=== PATIENT | male | born 1970 | race Caucasian/White ===

== ENCOUNTER 2016-10-30 10:30 | Inpatient (IN) | payer MEDICARE, SELFPAY ==
[~2016-10-30 10:30] MED LIST: CARISOPRODOL; HYDROCODON-ACE1 EA16 PO; IBUPROFEN; IBUPROFEN800 M1 PO; [UNRECOGNIZED DRUG - OTHER]
[2016-10-30 11:28] LABS: PROTHROMBIN TIME 11.8 SECONDS (9.0-13.6)
[2016-10-31 06:36] LABS: BASO % 0.1 % (0-2); EOS % 0.2 % (0-7); HCT-HEMATOCRIT 32.5 % (36.0-53.5); HGB-HEMOGLOBIN 10.5 gm/dl (13.5-17.0); IMMATURE GRANULOCYTES ABSOLUTE 0.04 tho/cmm (0-0.03); IMMATURE GRANULOCYTES PERCENT 0.2 % (0-0.3); LYMPH % 13.8 % (20-45); LYMPH ABSOLUTE COUNT 2.4 tho/cmm (0.8-4.5); MCH (MEAN CORPUSCULAR HGB) 27.2 pg (28.0-32.0); MCHC MEAN CORPUSCULAR HGB CONC 32.3 % (32.0-36.0); MCV (MEAN CELL VOLUME) 84.2 fl (82.0-96.0); MEAN PLATELET VOLUME 9.6 cmc (9.4-12.4); MONO % 11.7 % (0-12); MONOCYTE ABSOLUTE COUNT 2.1 tho/cmm (0.0-1.2); NEUTROPHIL ABSOLUTE COUNT 12.9 tho/cmm (1.6-8.0); NEUTROPHIL-AUTOMATED 12.9 tho/cmm (1.6-8.0); PLATELET COUNT 275 tho/cmm (150-450); RED BLOOD COUNT 3.86 mil/cmm (4.40-5.70); RED CELL DISTRIBUTION WIDTH 13.2 % (12.4-16.4); WHITE BLOOD COUNT 17.5 tho/cmm (4.0-10.0)
[2016-11-01] MEDS ORDERED: ASPIRIN325 M3 PO (08:06)
[2016-11-01] MEDS ORDERED: ULTRAM50 M1 PO (08:07)
[2016-11-01] MEDS ORDERED: ROXICODONE5 M2 PO (08:08)
[2016-11-01] MEDS ORDERED: MOBIC7.5 M2 PO (08:08)
== END 2016-11-01 11:55 | DRG 470 ==
LOC: SHSB 10:30 → ORE 13:00 → PACU 17:02 → 5EA 18:50
PROVIDERS: ADMIT Orthopaedic Surgery
PROC: 0SRB02A Replacement of Left Hip Joint with Metal on Polyethylene Synthetic Substitute, Uncemented, Open Approach (ICD-10-PCS; principal; 2016-10-30)
DX: M16.12 Unilateral primary osteoarthritis, left hip (principal); Z68.42 Body mass index [BMI] 45.0-49.9, adult; E66.9 Obesity, unspecified
CPT/HCPCS: C1776; J0171; J0690; J1170; J1885; J2270; J2405; J2550; J2795